=== PATIENT | male | born 1965 | race Caucasian/White ===

== ENCOUNTER 2017-06-23 09:14 | Day surgery (SDC) | payer SELFPAY ==
[~2017-06-23 09:14] MED LIST: Doxepin HCl10 MG PO; LIOTHYRONINE; Mobic15 MG PO; Zofran Odt4 MG SL
== END 2017-06-23 22:49 | disposition home or self-care (01) ==
LOC: ORSCMMR 09:14 → CT 09:14 → ORD 09:14 → ORSCMMR 09:15 → ORD 09:30 → CT 10:00 → ORD 22:49 → ORSCMMR 22:49
PROVIDERS: Radiology Diagnostic Radiology
PROC: B221YZZ Computerized Tomography (CT Scan) of Multiple Coronary Arteries using Other Contrast (ICD-10-PCS; principal; 2017-06-23 09:30)
DX: R07.9 Chest pain, unspecified (principal); R56.9 Unspecified convulsions; F41.9 Anxiety disorder, unspecified; G47.33 Obstructive sleep apnea (adult) (pediatric)
CPT/HCPCS: 75574; Q9967

== ENCOUNTER 2017-08-15 16:50 | Emergency (ER) | payer SELFPAY ==
[~2017-08-15] VITALS: Ht 170.2 cm; Wt 68.0 kg
[2017-08-15] MEDS ORDERED: DIAZ2 PO (18:24)
[2017-08-15] MEDS ORDERED: BUPR150ER PO (18:24)
[2017-08-15] MEDS ORDERED: Fludrocortison0.1 MG PO (18:25)
[2017-08-15] MEDS ORDERED: METO25ER PO (18:25)
[2017-08-15] MEDS ORDERED: NAPR500EC PO (18:25)
[2017-08-15] MEDS ORDERED: SUMA25 PO (18:26)
== END 2017-08-15 18:41 | disposition home or self-care (01) ==
LOC: ER 16:50
DX: G40.89 Other seizures (principal); K21.9 Gastro-esophageal reflux disease without esophagitis; E03.9 Hypothyroidism, unspecified
CPT/HCPCS: 99283

== ENCOUNTER 2018-07-11 22:23 | Emergency (ER) | payer OTHER ==
[~2018-07-11] VITALS: Ht 170.2 cm; Wt 74.8 kg
[~2018-07-11 22:23] MED LIST changes: +BUPR150ER PO; +DIAZ2 PO; +Fludrocortison0.1 MG PO; +METO25ER PO; +NAPR500EC PO; +SUMA25 PO
[2018-07-11 23:57] LABS: BASOPHILS ABSOLUTE AUTO 0.04 K/mm3 (0.00-0.23); BASOPHILS PERCENT AUTO 1 % (0-2); EOSINOPHILS ABSOLUTE AUTO 0.04 K/mm3 (0.00-0.68); EOSINOPHILS PERCENT AUTO 1 % (0-6); Hematocrit 40.7 % (37.0-53.0); Hemoglobin 13.5 g/dL (13.5-17.5); IMMATURE GRAN ABSOLUTE AUTO 0.02 K/mm3 (0.00-0.10); IMMATURE GRAN PERCENT AUTO 0 % (0-1); LYMPHOCYTES PERCENT AUTO 9 % (21-46); MONOCYTES ABSOLUTE AUTO 1.12 K/mm3 (0.16-1.47); MONOCYTES PERCENT AUTO 13 % (4-13); Mean Corpuscular HGB 29.9 pg (26.0-34.0); Mean Corpuscular HGB Conc 33.2 g/dL (31.5-36.5); Mean Corpuscular Volume 90 fL (80-100); Mean Platelet Volume 10.5 fL (9.1-12.4); NEUTROPHILS ABSOLUTE AUTO 6.62 K/mm3 (1.96-9.15); NEUTROPHILS PERCENT AUTO 77 % (41-73); Platelet Count 170 K/mm3 (150-400); RDW Coefficient Variation 12.6 % (11.7-14.2); RDW Standard Deviation 41.2 fL (35.1-46.3); Red Blood Cell Count 4.52 M/mm3 (4.30-5.90); White Blood Cell Count 8.64 K/mm3 (4.00-11.30)
[2018-07-12 00:19] LABS: Alanine Aminotransfer (ALT/SGP 25 U/L (12-78); Albumin, Blood 3.8 g/dL (3.4-5.0); Albumin/Globulin Ratio 1.1 (0.8-1.8); Alk Phos 69 U/L (50-136); Anion Gap 8 mmol/L (6-16); Aspartate Aminotrans (AST/SGOT 16 U/L (12-37); Bilirubin, Total 1.7 mg/dL (0.1-1.0); Blood Urea Nitrogen 16 mg/dL (8-24); Bun/Creatinine Ratio 15.2 (12.0-20.0); CO2, Blood 26 mmol/L (21-32); Calcium, Blood 8.2 mg/dL (8.5-10.1); Chloride, Blood 108 mmol/L (98-108); Creatinine, Blood 1.05 mg/dL (0.60-1.20); Globulin, Blood 3.4 g/dL (2.2-4.0); Glomerular Filtration Rate >60 (60-); Glucose, Blood 106 mg/dL (70-99); Potassium, Blood 3.6 mmol/L (3.5-5.5); Sodium, Blood 142 mmol/L (136-145); Total Protein, Blood 7.2 g/dL (6.4-8.2); Troponin I <0.015 ng/mL (0.000-0.040)
[2018-07-12 01:32] LABS: Influenza A Negative (NEGATIVE); Influenza B Negative (NEGATIVE)
== END 2018-07-12 02:23 | disposition home or self-care (01) ==
LOC: ER 22:23
PROVIDERS: Emergency Medicine
DX: M79.10 Myalgia, unspecified site (principal); Z88.8 Allergy status to other drugs, medicaments and biological substances; Z88.1 Allergy status to other antibiotic agents; Z79.899 Other long term (current) drug therapy
CPT/HCPCS: 36415; 71046; 80053; 84484; 85025; 87804; 93005; 93010; 96361; 96374; 99285-25; J1885; J7030

== ENCOUNTER → 2019-06-16 | Outpatient (CLI) | payer OTHER ==
[2019-06-16 15:19] LABS: BASOPHILS ABSOLUTE AUTO 0.04 K/mm3 (0.00-0.23); BASOPHILS PERCENT AUTO 1 % (0-2); EOSINOPHILS ABSOLUTE AUTO 0.07 K/mm3 (0.00-0.68); EOSINOPHILS PERCENT AUTO 1 % (0-6); Hematocrit 43.4 % (37.0-53.0); Hemoglobin 14.9 g/dL (13.5-17.5); IMMATURE GRAN ABSOLUTE AUTO 0.02 K/mm3 (0.00-0.10); IMMATURE GRAN PERCENT AUTO 0 % (0-1); LYMPHOCYTES ABSOLUTE AUTO 1.44 K/mm3 (0.84-5.20); LYMPHOCYTES PERCENT AUTO 25 % (21-46); MONOCYTES ABSOLUTE AUTO 0.56 K/mm3 (0.16-1.47); MONOCYTES PERCENT AUTO 10 % (4-13); Mean Corpuscular HGB 30.2 pg (26.0-34.0); Mean Corpuscular HGB Conc 34.3 g/dL (31.5-36.5); Mean Corpuscular Volume 88 fL (80-100); Mean Platelet Volume 10.9 fL (9.1-12.4); NEUTROPHILS ABSOLUTE AUTO 3.72 K/mm3 (1.96-9.15); NEUTROPHILS PERCENT AUTO 64 % (41-73); Platelet Count 218 K/mm3 (150-400); RDW Coefficient Variation 13.1 % (11.7-14.2); RDW Standard Deviation 41.2 fL (35.1-46.3); Red Blood Cell Count 4.94 M/mm3 (4.30-5.90); White Blood Cell Count 5.85 K/mm3 (4.00-11.30)
[2019-06-16 15:37] LABS: Alanine Aminotransfer (ALT/SGP 21 U/L (12-78); Albumin, Blood 3.9 g/dL (3.4-5.0); Alk Phos 72 U/L (40-126); Anion Gap 6 mmol/L (6-16); Aspartate Aminotrans (AST/SGOT 15 U/L (12-37); Bilirubin, Total 1.1 mg/dL (0.1-1.0); Blood Urea Nitrogen 11 mg/dL (8-24); Bun/Creatinine Ratio 10.1 (12.0-20.0); CO2, Blood 29 mmol/L (21-32); Calcium, Blood 8.5 mg/dL (8.5-10.1); Chloride, Blood 105 mmol/L (98-108); Creatinine, Blood 1.09 mg/dL (0.60-1.20); Free Thyroxine 1.01 ng/dL (0.70-1.60); Glomerular Filtration Rate >60 (60-); Glucose, Blood 97 mg/dL (70-99); Potassium, Blood 3.8 mmol/L (3.5-5.5); Sodium, Blood 140 mmol/L (136-145); Thyroid Stimulating Hormone 3.415 uIU/mL (0.360-4.800); Total Protein, Blood 7.9 g/dL (6.4-8.2)
== END | disposition home or self-care (01) ==
LOC: LAB SHORT 15:08 → LAB EV 15:08
PROVIDERS: General Practice
DX: E55.9 Vitamin D deficiency, unspecified (principal); R53.83 Other fatigue
CPT/HCPCS: 80053; 82306; 84439; 84443; 84481; 85025; 85651

== ENCOUNTER 2021-04-15 09:01 | Day surgery (SDC) | payer OTHER | END 2021-04-15 10:42 | disposition home or self-care (01) | LOC: ATC 09:01 | DX: R53.83 Other fatigue (principal); K21.9 Gastro-esophageal reflux disease without esophagitis; E03.9 Hypothyroidism, unspecified; Z88.1 Allergy status to other antibiotic agents; Z88.8 Allergy status to other drugs, medicaments and biological substances | CPT/HCPCS: 36415; 80400; 82533; 96372; J0834 ==

== ENCOUNTER 2021-04-29 12:24 | Day surgery (SDC) | payer OTHER ==
[~2021-04-29] VITALS: Ht 170.2 cm; Wt 69.8 kg
[~2021-04-29 12:24] MED LIST changes: +OMEP20ER PO; +TRAM50 PO
[2021-04-29] MEDS ORDERED: [UNRECOGNIZED DRUG - OTHER] PO (13:46)
--- NOTE | 2021-04-29 13:46 | NUR ---
Ambulatory in Day Surgery Lungs clear T/O to Auscultation. Patient confirms NPO status and agrees with scheduled surgery. Pre-Op teaching done. Pt verbalizes understanding. Patient States Post-Procedure ride home has been arranged.
--- NOTE | 2021-04-29 14:55 | NUR ---
04/29/21 1455 Roderick Blum History, Chart, Medications and Allergies reviewed before start of procedure. Patient confirms NPO status and agrees with scheduled surgery. 3-LEAD EKG REVIEWED WITH PHYSICIAN PRIOR TO START OF PROCEDURE. MONITOR INTACT WITH CONTINUOUS PULSE OXIMETRY AND INTERMITTENT BP. PATIENT DETERMINED TO BE ASA APPROPRIATE FOR PROPOFOL SEDATION PRIOR TO START OF PROCEDURE BY DR. ARCHULETA Bite Block Placed, WILL BE REMOVED AFTER/DURING PROCEDURE.
--- NOTE | 2021-04-29 15:46 | NUR ---
Patient up to Ambulate independently. Gait steady. Discharge instructions reviewed with patient. Patient verbalizes understanding. Copy given to patient to take home. Patient States Post-Procedure ride home has been arranged. Discharged via wheelchair to private car for ride home.
== END 2021-04-29 15:48 | disposition home or self-care (01) ==
LOC: ORSCMMR 12:24 → ORD 13:45 → ORSCMMR 15:48
PROVIDERS: Surgery
PROC: 0DB78ZX Excision of Stomach, Pylorus, Via Natural or Artificial Opening Endoscopic, Diagnostic (ICD-10-PCS; principal; 2021-04-29 13:45)
PROC: 0DJD8ZZ Inspection of Lower Intestinal Tract, Via Natural or Artificial Opening Endoscopic (ICD-10-PCS; principal; 2021-04-29 13:45)
PROC: 0DB48ZX Excision of Esophagogastric Junction, Via Natural or Artificial Opening Endoscopic, Diagnostic (ICD-10-PCS; principal; 2021-04-29 13:45)
DX: Z12.11 Encounter for screening for malignant neoplasm of colon (principal); K21.9 Gastro-esophageal reflux disease without esophagitis; K29.70 Gastritis, unspecified, without bleeding; E78.5 Hyperlipidemia, unspecified; M79.7 Fibromyalgia; E03.9 Hypothyroidism, unspecified; G47.33 Obstructive sleep apnea (adult) (pediatric); R73.03 Prediabetes; Z79.899 Other long term (current) drug therapy
CPT/HCPCS: 43239; G0121; 88305; 88342; J2704; J7120